=== PATIENT | male | born 1985 | race Caucasian/White ===

== ENCOUNTER 2022-12-20 11:25 | Emergency (ER) | payer OTHER, SELFPAY ==
[2022-12-20 11:31] VITALS: BP 116/74; PULSE 83; RESP 18; TEMP 36.6; O2SAT 97; BMI 21.9
--- NOTE | 2022-12-20 11:53 | CTR_ITS ---
PROCEDURE INFORMATION: Exam: CT Head Without Contrast Exam date and time: 12/20/2022 12:05 PM Age: 37 years old Clinical indication: Injury or trauma; Other: Hit on RT side of face; Work related; Blunt trauma (contusions or hematomas); Injury details: PT was struck by a bar that slipped and hit PT in right eye. PT was wearing glasses at the time - PT believes he has some glass in his eye. PT has 4cm laceration to right eye - PT is unable to open eye. ; Additional info: Facial trauma, head injury/facial trauma TECHNIQUE: Imaging protocol: Computed tomography of the head without contrast. Radiation optimization: All CT scans at this facility use at least one of these dose optimization techniques: automated exposure control; mA and/or kV adjustment per patient size (includes targeted exams where dose is matched to clinical indication); or iterative reconstruction. REPORTING DATA: Count of CT and Cardiac NM exams in prior 12 months: This patient has received 0 known CTs and 0 known cardiac nuclear medicine studies in the 12 months prior to the current study. COMPARISON: No relevant prior studies available. RADIATION DOSE METRICS: Total DLP (mGy-cm): 1036.5 FINDINGS: Brain: Normal. No hemorrhage. Unremarkable white matter. No mass effect. Cerebral ventricles: No ventriculomegaly. Paranasal sinuses: Visualized sinuses are unremarkable. No fluid levels. Mastoid air cells: Visualized mastoid air cells are well aerated. Bones/joints: Unremarkable. No acute fracture. Soft tissues: Unremarkable. CT/CT head wo con* [id number] IMPRESSION: No acute intracranial abnormality.
--- NOTE | 2022-12-20 11:53 | CTR_ITS ---
PROCEDURE INFORMATION: Exam: CT Maxillofacial Without Contrast Exam date and time: 12/20/2022 12:05 PM Age: 37 years old Clinical indication: Injury or trauma; Other: Hit RT side of face; Work related; Blunt trauma (contusions or hematomas); Ocular (eye or eyeball) and orbit/periorbital; Patient HX: PT was struck by a bar that slipped and hit PT in right eye. PT was wearing glasses at the time - PT believes he has some glass in his eye. PT has 4cm laceration to right eye - PT is unable to open eye. ; Additional info: RT orbit trauma, tender on RT zygomatic arch with lac and globus injury TECHNIQUE: Imaging protocol: Computed tomography of the face without contrast. Radiation optimization: All CT scans at this facility use at least one of these dose optimization techniques: automated exposure control; mA and/or kV adjustment per patient size (includes targeted exams where dose is matched to clinical indication); or iterative reconstruction. REPORTING DATA: Count of CT and Cardiac NM exams in prior 12 months: This patient has received 0 known CTs and 0 known cardiac nuclear medicine studies in the 12 months prior to the current study. COMPARISON: No relevant prior studies available. RADIATION DOSE METRICS: Total DLP (mGy-cm): 594.4 FINDINGS: Orbital cavities: Orbits are normal. Globes are unremarkable. Bones/joints: No acute fracture. Paranasal sinuses: Normal. No air-fluid levels. Soft tissues: Mild right infraorbital soft tissue irregularity. No retained radiopaque foreign body visualized. CT/CT facial bones wo con* [id number] IMPRESSION: Lower right periorbital soft tissue injury without acute bony abnormality or retained radiopaque foreign body.
--- NOTE | 2022-12-20 12:24 | W.ED.EYEPROB ---
HPI - Eye Problem General: Chief complaint: Eye Problems Stated complaint: face injury Time Seen by Provider: 12/20/22 11:26 Source: patient Mode of arrival: wheelchair Limitations: no limitations History of Present Illness: Patient presents to the emergency department today accompanied by family for evaluation treatment of facial and eye injury sustained just prior to arrival. Patient states that while at work today he was using a metal pry bar while working on a motor vehicle. He states the pry bar slipped and impacted him in the face. Patient was wearing corrective glass lenses which were impacted and broke. Patient believes he got glass in his eye and also has a cut to his right cheek. Patient has been unable to open his eye and has had continuous tearing. Patient is denying headache, neck pain, nausea, vomiting, dizziness. Patient admits to visual changes to the right eye and some localized facial pain. He states his last tetanus immunization was approximately 2 years ago. He denies being on any blood thinners. He denies any underlying health concerns. He states he takes no at home medications. Review of Systems General: Reports: 10 or more systems reviewed and unremarkable except in HPI and below Physical Exam Const: COMMON NORMALS: no acute distress, patient oriented x3 and alert HENMT: COMMON NORMALS: hearing grossly normal bilaterally, external ears normal, Normal external nose present, Normal nasal mucous membranes and turbinates present and moist oral mucous membranes NOSE: Normal external nose present and Normal nasal mucous membranes and turbinates present EXTERNAL EAR: Yes external ears normal OTHER: Patient is nontender palpation to the superior right orbit and nasal bone. Patient is nontender to the right TMJ, right maxillary region, and the right mandible. Patient with tenderness along the lateral zygomatic arch and the inferior right orbit on palpation. Eye: OTHER: Patient's right eye is unable to independently be open. Patient has some general swelling of the upper and lower lids and with manual lid separation shows moderate injections to the conjunctive a with obvious mucosal tissue loss to the lateral conjunctival mucosa of the right eye. Patient also has obvious pieces of glass embedded in the right cornea with accumulation of blood in the anterior chamber. Cornea appears hazy. Patient is able to perform range of motion with intact EOMs to the right eye on exam. Neck/C-Spine: COMMON NORMALS: no JVD Lymph: LYMPHATIC: no lymphadenopathy noted Resp: COMMON NORMALS: normal respiratory effort, No retractions and No use of accessory muscles Cardio: COMMON NORMALS: no JVD, regular rate and regular rhythm RATE: regular rate RHYTHM: regular rhythm GI: COMMON NORMALS: Normal to inspection, nondistended, normoactive bowel sounds present : COMMON NORMALS: Yes no CVA tenderness BLADDER/KIDNEY EXAM: Yes no CVA tenderness Back/Pelvis: COMMON NORMALS: no CVA tenderness and thoraco-lumbar ROM normal Extremity: COMMON NORMALS: normal to inspection, full ROM and capillary refill normal Neuro: COMMON NORMALS: patient oriented x3 SENSORIUM/ORIENTATION: Yes alert Psych: COMMON NORMALS: mental status grossly normal, cooperative, normal affect and activity/motor behavior normal Skin: NARRATIVE SKIN EXAM: Patient has some superficial abrasions to the right lateral cheek below the lower, lateral eyelid with minimal oozing of blood. Course Vital Signs: Vital signs: Vital Signs Temperature 97.9 F 12/20/22 11:31 Pulse Rate 83 12/20/22 11:31 Respiratory Rate 18 12/20/22 12:48 Blood Pressure 116/74 12/20/22 11:31 Pulse Oximetry 95 12/20/22 12:48 Oxygen Delivery Me thod Room Air 12/20/22 11:31 MDM - Eye Problem Medical Decision Making CT is negative for intracranial injury and negative for facial fractures. Patient's wound was cleaned using chlorhexidine and sterile saline. After cleaning, patient was found to have 2 very small superficial abrasions and possibly a small puncture to the right lateral cheek. No wound edge separation at rest or with movement of the cheek and therefore, will allow to heal by secondary intention. No active bleeding after cleaning. Patient received 2 g Ancef and basic lab work obtained. I reached out and spoke with ophthalmology [id number] Lopez PA-C with Dr. Villagomez office. He indicated that if the patient had no signs of globe disruption on CT, he would recommend having the patient seen and evaluated in the clinic where they have their equipment. He request the patient be sent over as soon as possible after final imaging and IV antibiotic admin was completed. Discussed with patient and . We did offer various ways to transport patient but, patient is requesting to go POV and is willing to transport. Ophthalmology address and phone number including a map given to the patient's with the strict instructions to go directly to the office. Patient's demographic and facesheet were faxed over prior to their discharge from the ED. We will defer care at this time to the ophthalmology services for further evaluation, treatment, and intervention of the patient's wounds. Differential Diagnosis Likely corneal abrasion, hyphema, subconjunctival hemorrhage, corneal ulcer and ruptured globe; Unlikely conjunctivitis, acute iritis, periorbital cellulitis or glaucoma Lab Data 12/20/22 12:30 12/20/22 12:[address] 12/20/22 11:53 IMPRESSION: Lower right periorbital soft tissue injury without acute bony abnormality or retained radiopaque foreign body. Head CT 12/20/22 11:53 IMPRESSION: No acute intracranial abnormality. Laboratory Results WBC 9.1 10^3/uL (4.0-10.0) 12/20/22 12:30 RBC 5.03 10^6/uL (4.1-5.3) 12/20/22 12:30 Hgb 14.3 g/dL (11.7-16.6) 12/20/22 12:30 Hct 42.8 % (42.0-52.0) 12/20/22 12:30 MCV 85.1 fl (80-94) 12/20/22 12:30 MCH 28.4 pg (28.0-34.0) 12/20/22 12:30 MCHC 33.4 g/dL (30.0-36.0) 12/20/22 12:30 RDW 13.1 % (12.1-15.1) 12/20/22 12:30 Plt Count 196 10^3/cmm (130-400) 12/20/22 12:30 MPV 10.2 fL (7.4-10.4) 12/20/22 12:30 Neut % (Auto) 64.2 % 12/20/22 12:30 Lymph % (Auto) 28.8 % 12/20/22 12:30 Pepin % (Auto) 6.1 % 12/20/22 12:30 Eos % (Auto) 0.3 % 12/20/22 12:30 Baso % (Auto) 0.4 % 12/20/22 12:30 Neut # (Auto) 5.85 10^3/uL (1.8-7.7) 12/20/22 12:30 Lymph # (Auto) 2.6 10^3/uL (0.8-4.8) 12/20/22 12:30 Pepin # (Auto) 0.6 10^3/uL (0.2-0.9) 12/20/22 12:30 Eos # (Auto) 0.0 10^3/uL (0.0-0.8) 12/20/22 12:30 Baso # (Auto) 0.0 10^3/uL (0.0-0.1) 12/20/22 12:30 Nucleated RBC % (auto) 0 % 12/20/22 12:30 Nucleated RBCs # 0.0 /100WBC 12/20/22 12:30 Sodium Cancelled 12/20/22 12:30 Potassium Cancelled 12/20/22 12:30 Chloride Cancelled 12/20/22 12:30 Carbon Dioxide Cancelled 12/20/22 12:30 Anion Gap Cancelled 12/20/22 12:30 BUN Cancelled 12/20/22 12:30 Creatinine Cancelled 12/20/22 12:30 GFR Calculation Cancelled 12/20/22 12:30 Glucose Cancelled 12/20/22 12:30 Calculated Osmolality Cancelled 12/20/22 12:30 Calcium Cancelled 12/20/22 12:30 Total Bilirubin Cancelled 12/20/22 12:30 AST Cancelled 12/20/22 12:30 ALT Cancelled 12/20/22 12:30 Alkaline Phosphatase Cancelled 12/20/22 12:30 Total Protein Cancelled 12/20/22 12:30 Albumin Cancelled 12/20/22 12:30 Globulin Cancelled 12/20/22 12:30 Discharge Plan Discharge Patient Disposition: Home Clinical Impression: Hyphema, Corneal abrasion, Blunt trauma of face, Abrasion of face, Acute foreign body of right cornea, Conjunctival abrasion Condition: Stable Prescriptions: No Action Tylenol Ex Str Rapid Release 500 mg Tablet 1,000 mg PO Q6H PRN (Reason: Pain) Discharge Orders: Discharge ED (Routine); Ordered 12/20/22 Ordered By: Renetta Castillo Discharge Activity: Limit activity as instructed Patient Instructions: Concussion/Head Injury - Adult, Corneal Abrasion (ED), Concussion (ED), Eye Foreign Body (ED), Post Concussion Syndrome (ED) Activity Restrictions/Additional Instructions: Patient's wounds were cleaned here in the emergency department and shows very small abrasions which do not require suturing at this time. Patient CT examinations reveal no intracranial injury and, no signs of facial fractures. Also, it appears the orbit is intact from the injury. For that reason, ophthalmology here in [place] is willing to see the patient DORIS-Go directly from the emergency department to their office for a more in-depth visual examination with more specialized equipment. Patient does have retained foreign material in the right cornual region and appears to have bleeding in his anterior chamber from his injuries. The ophthalmology office will be able to discuss with you treatment and intervention options for his injuries during his examination. Patient received 2 g of Ancef IV for prophylactic antibiotic treatment as well as pain medication. Patient should not drive with his injuries and, while on pain medication. Go directly to the ophthalmology office- Brennan De La Rosa PAC [address] [facility] [phone] Coding Level of Care Code ED Supervisor [employer] for Zak Hull
[2022-12-20 12:48] VITALS: RESP 18; O2SAT 95
[2022-12-20] MEDS: ceFAZolin 2,000 MG in sodium chloride 0.9% (plus) 50 ML 100 MG IV (12:48)
[2022-12-20] MEDS: HYDROmorphone 1 mg/mL INJ 1 mL 0.5 MG IVP (12:48)
[2022-12-20 12:56] LABS: Basophils % 0.4 %; Eosinophils % 0.3 %; Hematocrit 42.8 % (42.0-52.0); Hemoglobin 14.3 g/dL (11.7-16.6); Lymphocytes # 2.6 10^3/uL (0.8-4.8); Lymphocytes % 28.8 %; Mean Corpuscular HGB Conc 33.4 g/dL (30.0-36.0); Mean Corpuscular Hemoglobin 28.4 pg (28.0-34.0); Mean Corpuscular Volume 85.1 fl (80-94); Mean Platelet Volume 10.2 fL (7.4-10.4); Monocytes # 0.6 10^3/uL (0.2-0.9); Monocytes % 6.1 %; Neutrophils # 5.85 10^3/uL (1.8-7.7); Neutrophils % 64.2 %; Nucleated Red Blood Cells % 0 %; Platelet Count 196 10^3/cmm (130-400); Red Blood Count 5.03 10^6/uL (4.1-5.3); Red Cell Distribution Width 13.1 % (12.1-15.1); White Blood Count 9.1 10^3/uL (4.0-10.0)
[2022-12-20 13:05] VITALS: RESP 18; O2SAT 95
[2022-12-20 13:28] LABS: Alanine Aminotransferase 24 U/L (0-41); Albumin Level 4.4 g/dL (3.5-5.2); Alkaline Phosphatase 75 U/L (40-130); Anion Gap 13.5 (5-19); Aspartate Amino Transferase 19 U/L (0-40); Blood Urea Nitrogen 10 mg/dL (6-20); Calcium 9.1 mg/dL (8.5-10.5); Carbon Dioxide 25 mmol/L (22-29); Chloride 103 mmol/L (98-107); Globulin 2.7 g/dL (1.3-4.6); Glucose 122 mg/dL (65-115); Osmolality Calculated 286 mOsm/kg (285-295); Potassium 3.5 mmol/L (3.5-5.1); Sodium 138 mmol/L (136-145); Total Bilirubin 0.4 mg/dL (0.15-1.2); Total Protein 7.1 g/dL (6.6-8.7)
== END 2022-12-20 13:08 | disposition home or self-care (01) ==
PROVIDERS: Emergency Provider Physician Assistant
DX: H21.01 Hyphema, right eye (principal); T15.01XA Foreign body in cornea, right eye, initial encounter; S00.81XA Abrasion of other part of head, initial encounter; S05.01XA Injury of conjunctiva and corneal abrasion without foreign body, right eye, initial encounter; W20.8XXA Other cause of strike by thrown, projected or falling object, initial encounter; Y99.0 Civilian activity done for income or pay
CPT/HCPCS: 36415; 70450; 70486; 80053; 85025; 96374; 96375; 99284; J0690; J1170